=== PATIENT | male | born 1975 | race Hispanic/Latino ===

== ENCOUNTER 2018-12-04 11:58 | Inpatient (IN) | payer MEDICAID, MEDICARE, OTHER ==
--- NOTE | 2018-12-04 12:51 | Event Note ---
ED Screening Note Date of service: 12/04/18 Time: 12:23 ED Screening Note: 43 y o male presents with right shoulder pain s/p fall on groud level while picking up a ups package on his porch This initial assessment/diagnostic orders/clinical plan/treatment(s) is/are subject to change based on patients health status, clinical progression and re- assessment by fellow clinical providers in the ED. Further treatment and workup at subsequent clinical providers discretion. Patient/guardian urged not to elope from the ED as their condition may be serious if not clinically assessed and managed. Initial orders include: shoulder xr pain main side eval if dislocated
--- NOTE | 2018-12-04 13:09 | XRay Report ---
RIGHT SHOULDER 2 VIEWS INDICATION / CLINICAL INFORMATION: Fall with right shoulder/arm pain. COMPARISON: None available. FINDINGS: BONES / JOINT(S): There is an acute, comminuted fracture of the right humeral neck with medial displa cement of the distal fracture fragment. There is probable mild extension of the fracture into the bas e of the greater tuberosity of the humeral head. No dislocation is seen. SOFT TISSUES: No significant abnormality. ADDITIONAL FINDINGS: There are calcified right hilar lymph nodes. IMPRESSION: Acute, comminuted fracture of the right humeral neck with possible extension into the gre ater tuberosity. Signer Name: Ramírez Jules MD Signed: 12/04/2018 1:04 PM Workstation Name: [id number]
[2018-12-04] MEDS ORDERED: KETOROLAC 30 MG/1 ML INJ IV ONE (13:10)
[2018-12-04] MEDS ORDERED: MORPHINE 4 MG/1 ML INJ IV ONE ×2 (13:36→16:27)
--- NOTE | 2018-12-04 13:54 | XRay Report ---
RIGHT ELBOW 1 VIEW INDICATION / CLINICAL INFORMATION: Right elbow pain after fall COMPARISON: None available. FINDINGS: BONES / JOINT(S): Images are suboptimal due to the patient's inability to cooperate with positioning. I see no evidence of fracture or dislocation. SOFT TISSUES: No significant abnormality. ADDITIONAL FINDINGS: None. IMPRESSION: Negative limited exam. Signer Name: Ramírez Jules MD Signed: 12/04/2018 1:50 PM Workstation Name: [id number]
[2018-12-04] MEDS ORDERED: MORPHINE 4 MG/1 ML INJ ONE (16:26)
--- NOTE | 2018-12-04 16:34 | Emergency Department Report ---
ED Extremity Problem HPI - General Chief complaint: Shoulder Injury Stated complaint: FALL/SHOULDER PAIN Time Seen by Provider: 12/04/18 12:23 Source: patient Mode of arrival: Wheelchair Limitations: No Limitations - History of Present Illness Initial comments: Patient is a 43-year-old male withpast medical history who is complaining of right shoulder and elbow pain. Patient states he was getting up on his porch and a loss of balance and fell backwards onto his right side. Patient has an abrasion to the right elbow with some generalized pain. Patient also has a great deal of pain of the deltoid. Patient did not strike his head was no loss of consciousness. Patient states any movement of the right upper extremity causes intense 10 out of 10 pain. Severity scale (0 -10): 6 - Related Data Previous Rx's Medication Instructions Recorded Last Taken Type Multivitamin Tab [Multiple Vitamin 1 each PO QDAY #30 tablet 06/02/14 Unknown Rx TAB (Theragran)] buPROPion SR [Wellbutrin SR] 150 mg PO 1000,1600 #60 tablet 06/02/14 Unknown Rx traZODone [Desyrel] 50 mg PO QHS PRN #30 tablet 06/02/14 Unknown Rx Allergies Allergy/AdvReac Type Severity Reaction Status Date / Time No Known Allergies Allergy Verified 04/15/13 19:40 ED Review of Systems ROS: Stated complaint: FALL/SHOULDER PAIN Other details as noted in HPI Comment: All other systems reviewed and negative ED Past Medical Hx - Past Medical History Hx HIV: No Additional medical history: Friend with patient states no health history or allergies - Surgical History Past Surgical History?: No - Social History Smoking Status: Current Every Day Smoker Substance Use Type: None - Medications Home Medications: Home Medications Medication Instructions Recorded Confirmed Last Taken Type Multivitamin Tab [Multiple Vitamin 1 each PO QDAY #30 tablet 06/02/14 Unknown Rx TAB (Theragran)] buPROPion SR [Wellbutrin SR] 150 mg PO 1000,1600 #60 tablet 06/02/14 Unknown Rx traZODone [Desyrel] 50 mg PO QHS PRN #30 tablet 06/02/14 Unknown Rx ED Physical Exam - General Limitations: No Limitations General appearance: alert, in distress - Head Head exam: Present: atraumatic, normocephalic - Eye Eye exam: Present: normal appearance, PERRL, EOMI (secondary to pain) - ENT ENT exam: Present: mucous membranes moist - Neck Neck exam: Present: normal inspection - Respiratory Respiratory exam: Present: normal lung sounds bilaterally. Absent: respiratory distress, wheezes, rales, rhonchi - Cardiovascular Cardiovascular Exam: Present: regular rate, normal rhythm. Absent: systolic murmur, diastolic murmur, rubs, gallop - GI/Abdominal GI/Abdominal exam: Present: soft, normal bowel sounds - Rectal Rectal exam: Present: deferred - Extremities Exam Extremities exam: Present: normal inspection - Expanded Upper Extremity Exam Right Shoulder Exam: Present: tenderness, swelling, tenderness over AC joint. Absent: abrasion, laceration Upper Arm exam: Present: swelling Elbow exam: Present: tenderness, swelling, abrasion Forearm Wrist exam: Present: normal inspection, full ROM. Absent: tenderness Hand Wrist exam: Present: normal inspection, full ROM Vascular: Absent: vascular compromise - Back Exam Back exam: Present: normal inspection - Neurological Exam Neurological exam: Present: alert, oriented X3 - Psychiatric Psychiatric exam: Present: normal affect, normal mood - Skin Skin exam: Present: warm, dry, intact, normal color. Absent: rash ED Course Vital Signs 12/04/18 12/04/18 12:24 12:25 Temperature 97.3 F L Pulse Rate 97 H Respiratory 16 Rate Blood Pressure 142/63 [Left] O2 Sat by Pulse 96 Oximetry ED Medical Decision Making - Radiology Data [facility] [address] [place] [address] XRay Report Signed Patient: ROBERT AGUIAR JR MR#: [id number] : 1975 Acct:[id number] Age/Sex: 43 / M ADM Date: 12/04/18 Loc: ED Attending Dr: Ordering Physician: LEMUEL BRYSON Date of Service: 12/04/18 Procedure(s): XR shoulder 2+V RT Accession Number(s): [id number] cc: LEMUEL BRYSON Fluoro Time In Minutes: RIGHT SHOULDER 2 VIEWS INDICATION / CLINICAL INFORMATION: Fall with right shoulder/arm pain. COMPARISON: None available. FINDINGS: BONES / JOINT(S): There is an acute, comminuted fracture of the right humeral neck with medial displacement of the distal fracture fragment. There is probable mild extension of the fracture into the base of the greater tuberosity of the humeral head. No dislocation is seen. SOFT TISSUES: No significant abnormality. ADDITIONAL FINDINGS: There are calcified right hilar lymph nodes. IMPRESSION: Acute, comminuted fracture of the right humeral neck with possible extension into the greater tuberosity. Signer Name: Ramírez Jules MD Signed: 12/04/2018 1:04 PM Workstation Name: [id number] Transcribed By: RT Dictated By: Ramírez Jules MD Electronically Authenticated By: Ramírez Jules MD Signed Date/Time: 12/04/[address] [facility] [address] [place] [address] XRay Report Signed Patient: ROBERT AGUIAR JR MR#: [id number] : 1975 Acct:[id number] Age/Sex: 43 / M ADM Date: 12/04/18 Loc: ED Attending Dr: Ordering Physician: LEDY CARRASCO MD Date of Service: 12/04/18 Procedure(s): XR elbow 1V RT Accession Number(s): [id number] cc: LEDY CARRASCO MD Fluoro Time In Minutes: RIGHT ELBOW 1 VIEW INDICATION / CLINICAL INFORMATION: Right elbow pain after fall COMPARISON: None available. FINDINGS: BONES / JOINT(S): Images are suboptimal due to the patient's inability to cooperate with positioning. I see no evidence of fracture or dislocation. SOFT TISSUES: No significant abnormality. ADDITIONAL FINDINGS: None. IMPRESSION: Negative limited exam. Signer Name: Ramírez Jules MD Signed: 12/04/2018 1:50 PM Workstation Name: [id number] Transcribed By: RT Dictated By: Ramírez Jules MD Electronically Authenticated By: Ramírez Jules MD Signed Date/Time: 12/04/18 2500 - Medical Decision Making Discussed the case with Dr. Bryan with orthopedic surgery and he looked at the films and stated that this was something that would be more urgent surgical repair. He suggested patient be admitted to the hospital for pain control and surgical clearance and he likely will do surgery in the morning. Dr. Mitchell with the hospitalist service has agreed to accept the patient for admission. Critical care attestation.: If time is entered above; I have spent that time in minutes in the direct care of this critically ill patient, excluding procedure time. ED Disposition Clinical Impression: Humeral surgical neck fracture Qualifiers: Encounter type: initial encounter Fracture type: closed Fracture morphology: 2- part Fracture alignment: displaced Laterality: right Qualified Code(s): S42.221A - 2-part displaced fracture of surgical neck of right humerus, initial encounter for closed fracture Elbow contusion Qualifiers: Encounter type: initial encounter Laterality: right Qualified Code(s): S50.01XA - Contusion of right elbow, initial encounter Disposition: DC09 OP ADMIT IP TO THIS HOSP Is pt being admited?: Yes Does the pt Need Aspirin: No Condition: Stable Referrals: PRIMARY CARE, [Primary Care Provider] - 3-5 Days Time of Disposition: 16:36
[2018-12-04 16:56] LABS: Basophils # (Auto) 0.1 K/mm3 (0.0-0.1); Basophils % (Auto) 0.7 % (0.0-1.8); Eosinophils % (Auto) 0.1 % (0.0-4.3); Hematocrit 45.5 % (35.5-45.6); Hemoglobin 15.2 gm/dl (11.8-15.2); Lymphocytes # (Auto) 1.2 K/mm3 (1.2-5.4); Lymphocytes % (Auto) 8.9 % (13.4-35.0); Mean Corpuscular HGB Conc 33 % (32-34); Mean Corpuscular Volume 91 fl (84-94); Monocytes # (Auto) 0.7 K/mm3 (0.0-0.8); Monocytes % (Auto) 5.1 % (0.0-7.3); Platelet Count 259 K/mm3 (140-440); Red Blood Count 5.01 M/mm3 (3.65-5.03); Red Cell Distribution Width 13.3 % (13.2-15.2)
[2018-12-04 17:16] LABS: Calcium 9.4 mg/dL (8.4-10.2)
[2018-12-04 17:17] LABS: Partial Thromboplastin Time 26.8 Sec. (24.2-36.6)
--- NOTE | 2018-12-04 18:02 | Cat Scan Report ---
CT upper extremity left without contrast INDICATION / CLINICAL INFORMATION: right proximal humerus fracture, pre op detail. TECHNIQUE: Noncontrast CT of the right humerus with multiplanar reformats. All CT scans at this location are per formed using CT dose reduction for ALARA by means of automated exposure control. COMPARISON: Right shoulder radiographs from 12/04/2018 FINDINGS: Acute, mildly comminuted proximal humerus fracture involving the surgical neck and greater tuberosity . The greater tuberosity fragment is nondisplaced. Normal glenohumeral articulation is maintained, al though the humeral head fragment is internally rotated. There is apex anterior and medial angulation of the fracture. The largest posterior butterfly fragment is 4.5 cm in length. The clavicle, scapula and visualized ribs are intact. Visualized portion of the right lung is clear. IMPRESSION: 1. Comminuted and angulated proximal humerus fracture with largest butterfly fragment 4.5 cm in lengt h. Signer Name: Shalom Yeung MD Signed: 12/04/2018 5:57 PM Workstation Name: [id number]
--- NOTE | 2018-12-04 21:34 | History and Physical Report ---
History of Present Illness Date of examination: 12/04/18 Date of admission: 12/04/18 16:37 Chief complaint: Right shoulder pain for the last few hours History of present illness: 43-year-old male with no significant past medical history except for depression was trying to pick a package. Stumbled and fell down on the right upper extremity and sustained severe pain in right upper arm. Pain is 10 on a scale of 1-10 no loss of consciousness. Patient also has pain in the right elbow which is about 6 on a scale of 1-10 associated with an abrasion Past Medical History depression Surgical History Past Surgical History?: No Social History Smoking Status: Current Every Day Smoker Substance Use Type: Noneb Family history Htn - Medications Home Medications: Home Medications Medication Instructions Recorded Confirmed Last Taken Type Multivitamin Tab [Multiple Vitamin 1 each PO QDAY #30 tablet 06/02/14 Unknown Rx TAB (Theragran)] buPROPion SR [Wellbutrin SR] 150 mg PO 1000,1600 #60 tablet 06/02/14 Unknown Rx traZODone [Desyrel] 50 mg PO QHS PRN #30 tablet 06/02/14 Unknown Rx Review of Systems ROS: Stated complaint: FALL/SHOULDER PAIN Other details as noted in HPI Comment: All other systems reviewed and negative Medications and Allergies Allergies Allergy/AdvReac Type Severity Reaction Status Date / Time No Known Allergies Allergy Verified 04/15/13 19:40 Home Medications Medication Instructions Recorded Confirmed Last Taken Type Multivitamin Tab [Multiple Vitamin 1 each PO QDAY #30 tablet 06/02/14 12/04/18 11/12/18 Rx TAB (Theragran)] buPROPion SR [Wellbutrin SR] 150 mg PO 1000,1600 #60 tablet 06/02/14 12/04/18 12/03/18 Rx traZODone [Desyrel] 50 mg PO QHS PRN #30 tablet 06/02/14 12/04/18 12/03/18 Rx Exam - Constitutional Vitals: Temp Pulse Resp BP Pulse Ox 97.5 F L 81 20 127/90 96 12/04/18 20:23 12/04/18 20:23 12/04/18 20:23 12/04/18 20:23 12/04/18 20:23 General appearance: Present: no acute distress, well-nourished - EENT Eyes: Present: PERRL ENT: hearing intact, clear oral mucosa - Neck Neck: Present: supple, normal ROM - Respiratory Respiratory effort: normal Respiratory: bilateral: CTA - Cardiovascular Heart rate: 78 Rhythm: regular Heart Sounds: Present: S1 & S2. Absent: rub, click - Extremities Extremities: pulses symmetrical, No edema, abnormal (swelling of the right shoulder and proximal upper extremity, decreased range of motion) Peripheral Pulses: within normal limits - Abdominal General gastrointestinal: Present: soft, non-tender, non-distended, normal bowel sounds Male genitourinary: Present: normal - Integumentary Integumentary: Present: clear, warm, dry - Musculoskeletal Musculoskeletal: gait normal, strength equal bilaterally - Psychiatric Psychiatric: appropriate mood/affect, intact judgment & insight - Neurologic Neurologic: CNII-XII intact, moves all extremities - Allied Health Allied health notes reviewed: nursing, case management Results - Labs CBC & Chem 7: 12/04/18 16:39 12/04/18 16:39 Labs: Laboratory Last Values WBC 13.0 K/mm3 (4.5-11.0) H 12/04/18 16:39 RBC 5.01 M/mm3 (3.65-5.03) 12/04/18 16:39 Hgb 15.2 gm/dl (11.8-15.2) 12/04/18 16:39 Hct 45.5 % (35.5-45.6) 12/04/18 16:39 MCV 91 fl (84-94) 12/04/18 16:39 MCH 30 pg (28-32) 12/04/18 16:39 MCHC 33 % (32-34) 12/04/18 16:39 RDW 13.3 % (13.2-15.2) 12/04/18 16:39 Plt Count 259 K/mm3 (140-440) 12/04/18 16:39 Lymph % (Auto) 8.9 % (13.4-35.0) L 12/04/18 16:39 Branch % (Auto) 5.1 % (0.0-7.3) 12/04/18 16:39 Eos % (Auto) 0.1 % (0.0-4.3) 12/04/18 16:39 Baso % (Auto) 0.7 % (0.0-1.8) 12/04/18 16:39 Lymph # 1.2 K/mm3 (1.2-5.4) 12/04/18 16:39 Branch # 0.7 K/mm3 (0.0-0.8) 12/04/18 16:39 Eos # 0.0 K/mm3 (0.0-0.4) 12/04/18 16:39 Baso # 0.1 K/mm3 (0.0-0.1) 12/04/18 16:39 Seg Neutrophils % 85.2 % (40.0-70.0) H 12/04/18 16:39 Seg Neutrophils # 11.1 K/mm3 (1.8-7.7) H 12/04/18 16:39 PT 12.9 Sec. (12.2-14.9) 12/04/18 16:39 INR 1.00 (0.87-1.13) 12/04/18 16:39 APTT 26.8 Sec. (24.2-36.6) 12/04/18 16:39 Sodium 137 mmol/L (137-145) 12/04/18 16:39 Potassium 4.7 mmol/L (3.6-5.0) 12/04/18 16:39 Chloride 99.1 mmol/L (98-107) 12/04/18 16:39 Carbon Dioxide 25 mmol/L (22-30) 12/04/18 16:39 18 mmol/L 12/04/18 16:39 BUN 20 mg/dL (9-20) 12/04/18 16:39 1.5 mg/dL (0.8-1.5) 12/04/18 16:39 Estimated GFR 51 ml/min 12/04/18 16:39 13 % 12/04/18 16:39 Glucose 116 mg/dL (75-100) H 12/04/18 16:39 Calcium 9.4 mg/dL (8.4-10.2) 12/04/18 16:39 Short CBC 12/04/18 Range/Units 16:39 WBC 13.0 H (4.5-11.0) K/mm3 Hgb 15.2 (11.8-15.2) gm/dl Hct 45.5 (35.5-45.6) % Plt Count 259 (140-440) K/mm3 BMP 12/04/18 16:39 Sodium 137 Potassium 4.7 Chloride 99.1 Carbon Dioxide 25 BUN 20 Creatinine 1.5 Glucose 116 H Calcium 9.4 - Imaging and Cardiology Imaging and Cardiology: Right shoulder x-ray IMPRESSION: Acute, comminuted fracture of the right humeral neck with possible extension into the greater tuberosity. Right shoulder CT IMPRESSION: 1. Comminuted and angulated proximal humerus fracture with largest butterfly fragment 4.5 cm in length. Right elbow x-ray No fracture Assessment and Plan Advance Directives: Yes (full code) VTE prophylaxis?: Mechanical Plan of care discussed with patient/family: Yes - Patient Problems (1) Humeral surgical neck fracture Current Visit: Yes Status: Acute Qualifiers: Encounter type: initial encounter Fracture type: closed Fracture morphology: 2-part Fracture alignment: displaced Laterality: right Qualified Code(s): S42.221A - 2-part displaced fracture of surgical neck of right humerus, initial encounter for closed fracture Plan to address problem: Needs open reduction internal fixation Dr. Bryan consulted (2) Elbow contusion Current Visit: Yes Status: Acute Qualifiers: Encounter type: initial encounter Laterality: right Qualified Code(s): S50.01XA - Contusion of right elbow, initial encounter Plan to address problem: Symptomatic treatment (3) Depression Current Visit: No Status: Chronic Qualifiers: Depression Type: unspecified Qualified Code(s): F32.9 - Major depressive disorder, single episode, unspecified Plan to address problem: continue trazodone (4) DVT prophylaxis Current Visit: No Status: Acute Plan to address problem: SCDs for now and GI prophylaxis
[2018-12-04] MEDS ORDERED: METOCLOPRAMIDE 10 MG/2 ML INJ IV PRN (21:35)
[2018-12-04] MEDS ORDERED: ONDANSETRON 4 MG/2 ML INJ IV PRN (21:35)
[2018-12-04] MEDS ORDERED: oxyCODONE /ACETAMINOPHEN 5-325MG TAB PO PRN (21:35)
[2018-12-04] MEDS ORDERED: ACETAMINOPHEN 325 MG TAB PO PRN (21:35)
[2018-12-04] MEDS: HYDROmorphone 1 MG/1 ML INJ IV PRN (21:58)
[2018-12-04] MEDS: SODIUM CHLORIDE 0.9% 1000 ML 1,000 ML IV SCH (21:59)
[2018-12-04] MEDS: FAMOTIDINE 20 MG/2 ML INJ IV SCH (21:59)
[2018-12-05] MEDS: HYDROmorphone 1 MG/1 ML INJ IV PRN ×3 (05:45→21:37)
[2018-12-05 06:27] LABS: Basophils % (Auto) 0.6 % (0.0-1.8); Eosinophils # (Auto) 0.1 K/mm3 (0.0-0.4); Eosinophils % (Auto) 1.7 % (0.0-4.3); Hematocrit 42.3 % (35.5-45.6); Mean Corpuscular HGB Conc 33 % (32-34); Mean Corpuscular Volume 91 fl (84-94); Monocytes # (Auto) 0.6 K/mm3 (0.0-0.8); Monocytes % (Auto) 7.2 % (0.0-7.3); Platelet Count 247 K/mm3 (140-440); Red Blood Count 4.67 M/mm3 (3.65-5.03); Red Cell Distribution Width 13.4 % (13.2-15.2)
[2018-12-05 06:50] LABS: Albumin 4.4 g/dL (3.9-5); Calcium 8.8 mg/dL (8.4-10.2)
--- NOTE | 2018-12-05 09:26 | Anesthesia Day of Surgery ---
Anesthesia Day of Surgery - Day of Surgery Patient Examined: Yes Patient H&P Reviewed: Yes Patient is NPO: Yes
--- NOTE | 2018-12-05 09:26 | Anesthesia Consultation ---
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
[2018-12-05] MEDS ORDERED: ceFAZolin/STERILE WATER 2 GM/20 ML SYRINGE IV NR (09:30)
[2018-12-05] MEDS ORDERED: LACTATED RINGERS 1,000 ML IV SCH (09:30)
[2018-12-05] MEDS: FAMOTIDINE 20 MG/2 ML INJ IV SCH ×2 (10:00→21:39)
[2018-12-05] MEDS ORDERED: HYDROmorphone 1 MG/1 ML INJ ONE (10:17)
[2018-12-05] MEDS ORDERED: PROPOFOL 200 MG/20 ML VIAL IV ONE (10:18)
[2018-12-05] MEDS ORDERED: ROCURONIUM 50 MG/5 ML INJ IV ONE (10:48)
[2018-12-05] MEDS ORDERED: LIDOCAINE MPF (2%) 20 MG/1 ML VIAL 5 ML ONE (10:48)
[2018-12-05] MEDS ORDERED: dexAMETHasone 20 MG/5 ML VIAL ONE (10:49)
[2018-12-05] MEDS: oxyCODONE /ACETAMINOPHEN 5-325MG TAB PO PRN (13:11)
--- NOTE | 2018-12-05 14:00 | Progress Note ---
Assessment and Plan Assessment and plan: (1) Humeral surgical neck fracture Current Visit: Yes Status: Acute Qualifiers: Encounter type: initial encounter Fracture type: closed Fracture morphology: 2-part Fracture alignment: displaced Laterality: right Qualified Code(s): S42.221A - 2-part displaced fracture of surgical neck of right humerus, initial encounter for closed fracture Plan to address problem: Needs open reduction internal fixation Dr. Bryan consulted and will do it tomorrow (2) Elbow contusion Current Visit: Yes Status: Acute Qualifiers: Encounter type: initial encounter Laterality: right Qualified Code(s): S50.01XA - Contusion of right elbow, initial encounter Plan to address problem: Symptomatic treatment (3) Depression Current Visit: No Status: Chronic Qualifiers: Depression Type: unspecified Qualified Code(s): F32.9 - Major depressive disorder, single episode, unspecified Plan to address problem: continue trazodone (4) DVT prophylaxis Current Visit: No Status: Acute Plan to address problem: SCDs for now and GI prophylaxis History Interval history: Patient was seen and evaluated this morning, patient is complaining of severe right arm pain. Hospitalist Physical - Physical exam Narrative exam: Not in cardiopulmonary distress. The patient appeared well nourished and normally developed. Vital signs as documented. Head exam is unremarkable. No scleral icterus . Neck is without jugular venous distension, thyromegaly, or carotid bruits. Lungs are clear to auscultation. Cardiac exam reveals regular rate and Rhythm. First and second heart sounds normal. No murmurs, rubs or gallops. Abdominal exam reveals normal bowel sounds, no masses, no organomegaly and no aortic enlargement. Extremities Limited range of motion of the right upper extremity. C[employer]ED [employer]: Alert and oriented 3. No focal weakness. - Constitutional Vitals: Temp Pulse Resp BP Pulse Ox 97.3 F L 87 20 120/91 95 12/05/18 09:42 12/05/18 09:42 12/05/18 09:42 12/05/18 09:42 12/05/18 09:42 General appearance: Present: no acute distress, well-nourished Results - Labs CBC & Chem 7: 12/05/18 05:54 12/05/18 05:54 Labs: Laboratory Last Values WBC 7.8 K/mm3 (4.5-11.0) 12/05/18 05:54 RBC 4.67 M/mm3 (3.65-5.03) 12/05/18 05:54 Hgb 14.0 gm/dl (11.8-15.2) 12/05/18 05:54 Hct 42.3 % (35.5-45.6) 12/05/18 05:54 MCV 91 fl (84-94) 12/05/18 05:54 MCH 30 pg (28-32) 12/05/18 05:54 MCHC 33 % (32-34) 12/05/18 05:54 RDW 13.4 % (13.2-15.2) 12/05/18 05:54 Plt Count 247 K/mm3 (140-440) 12/05/18 05:54 Lymph % (Auto) 26.0 % (13.4-35.0) 12/05/18 05:54 [place] % (Auto) 7.2 % (0.0-7.3) 12/05/18 05:54 Eos % (Auto) 1.7 % (0.0-4.3) 12/05/18 05:54 Baso % (Auto) 0.6 % (0.0-1.8) 12/05/18 05:54 Lymph # 2.0 K/mm3 (1.2-5.4) 12/05/18 05:54 [place] # 0.6 K/mm3 (0.0-0.8) 12/05/18 05:54 Eos # 0.1 K/mm3 (0.0-0.4) 12/05/18 05:54 Baso # 0.0 K/mm3 (0.0-0.1) 12/05/18 05:54 Seg Neutrophils % 64.5 % (40.0-70.0) 12/05/18 05:54 Seg Neutrophils # 5.1 K/mm3 (1.8-7.7) 12/05/18 05:54 PT 12.9 Sec. (12.2-14.9) 12/04/18 16:39 INR 1.00 (0.87-1.13) 12/04/18 16:39 APTT 26.8 Sec. (24.2-36.6) 12/04/18 16:39 Sodium 140 mmol/L (137-145) 12/05/18 05:54 Potassium 3.8 mmol/L (3.6-5.0) 12/05/18 05:54 Chloride 102.7 mmol/L (98-107) 12/05/18 05:54 Carbon Dioxide 27 mmol/L (22-30) 12/05/18 05:54 14 mmol/L 12/05/18 05:54 BUN 25 mg/dL (9-20) H 12/05/18 05:54 1.5 mg/dL (0.8-1.5) 12/05/18 05:54 Estimated GFR 51 ml/min 12/05/18 05:54 17 % 12/05/18 05:54 Glucose 113 mg/dL (75-100) H 12/05/18 05:54 5.5 % (4-6) 12/04/18 21:49 Calcium 8.8 mg/dL (8.4-10.2) 12/05/18 05:54 0.50 mg/dL (0.1-1.2) 12/05/18 05:54 AST 18 units/L (5-40) 12/05/18 05:54 ALT 20 units/L (7-56) 12/05/18 05:54 76 units/L (35-129) 12/05/18 05:54 7.1 g/dL (6.3-8.2) 12/05/18 05:54 4.4 g/dL (3.9-5) 12/05/18 05:54 1.6 % 12/05/18 05:54 Active Medications - Current Medications Current Medications: Generic Name Dose Route Start Last Admin Trade Name Freq PRN Reason Stop Dose Admin Acetaminophen 650 mg 12/04/18 21:35 Tylenol PO Q4H PRN Pain MILD(1-3)/Fever >100.5/ELAM Cefazolin Sodium 2 gm 12/05/18 09:30 Ancef/Sterile Water 2 Gm/20 Ml IV 12/05/18 15:00 PREOP NR Famotidine 20 mg 12/04/18 22:00 12/04/18 21:59 Pepcid IV 20 mg BID TK Administration Hydromorphone HCl 1 mg 12/04/18 21:35 12/05/18 05:45 Dilaudid IV 1 mg Q3H PRN Administration Pain , Severe (7-10) Sodium Chloride 1,000 mls @ 75 mls/hr 12/04/18 22:00 12/04/18 21:59 Nacl 0.9% 1000 Ml IV 12/05/18 16:00 75 mls/hr DIRECT TK Administration Lactated Ringer's 1,000 mls @ 100 mls/hr 12/05/18 09:30 12/05/18 09:10 Lactated Ringers IV 12/05/18 18:00 100 mls/hr DIRECT TK Administration Metoclopramide HCl 10 mg 12/04/18 21:35 Reglan IV Q6H PRN Nausea And Vomiting Ondansetron HCl 4 mg 12/04/18 21:35 12/04/18 21:59 Zofran IV 4 mg Q8H PRN Administration Nausea And Vomiting Oxycodone/Acetaminophen 2 tab 12/05/18 13:00 12/05/18 13:11 Percocet 5/325 PO 2 tab Q6H PRN Administration Pain, Moderate (4-6) Sodium Chloride 10 ml 12/04/18 22:00 12/04/18 22:00 Sodium Chloride Flush Syringe 10 Ml IV 10 ml BID TK Administration Sodium Chloride 10 ml 12/04/18 21:35 Sodium Chloride Flush Syringe 10 Ml IV PRN PRN LINE FLUSH
[2018-12-05] MEDS: SODIUM CHLORIDE 0.9% 1000 ML 1,000 ML IV SCH (15:45)
[2018-12-06] MEDS: HYDROmorphone 1 MG/1 ML INJ IV PRN ×2 (05:58→19:45)
[2018-12-06] MEDS ORDERED: LACTATED RINGERS 1,000 ML IV SCH (07:20)
[2018-12-06] MEDS ORDERED: LIDOCAINE MPF (2%) 20 MG/1 ML VIAL 5 ML ONE (07:48)
[2018-12-06] MEDS ORDERED: ROCURONIUM 50 MG/5 ML INJ IV ONE (07:48)
[2018-12-06] MEDS ORDERED: fentaNYL 100 MCG/2 ML INJ ONE ×2 (07:49)
[2018-12-06] MEDS ORDERED: LACTATED RINGERS 1,000 ML ONE (07:49)
[2018-12-06] MEDS ORDERED: MIDAZOLAM 2 MG/2 ML INJ ONE (07:49)
[2018-12-06] MEDS ORDERED: PROPOFOL 200 MG/20 ML VIAL IV ONE (07:49)
[2018-12-06] MEDS ORDERED: BUPIVACAINE-EPINEPHRINE/PF 0.5%-1:200,000 (30 ML) VIAL INFILTRATI ONE (07:51)
[2018-12-06] MEDS ORDERED: ceFAZolin/STERILE WATER 2 GM/20 ML SYRINGE IV NR (08:15)
[2018-12-06] MEDS ORDERED: SUCCINYLCHOLINE CHLORIDE 200 MG/10 ML INJ MDV ONE (08:22)
[2018-12-06] MEDS ORDERED: dexAMETHasone 20 MG/5 ML VIAL ONE (08:58)
[2018-12-06] MEDS ORDERED: ONDANSETRON 4 MG/2 ML INJ ONE (08:58)
[2018-12-06] MEDS ORDERED: METOCLOPRAMIDE 10 MG/2 ML INJ ONE (08:58)
[2018-12-06] MEDS ORDERED: SODIUM CHLORIDE 0.9% IRR 1,500 ML BOTTLE IR ONE (09:12)
[2018-12-06] MEDS ORDERED: KETOROLAC 30 MG/1 ML INJ ONE (09:52)
[2018-12-06] MEDS ORDERED: NEOSTIGMINE 10MG/10 ML INJ MDV ONE (09:56)
[2018-12-06] MEDS ORDERED: GLYCOPYRROLATE 0.4 MG/2 ML INJ ONE (09:56)
--- NOTE | 2018-12-06 10:10 | Procedure Note ---
Date of procedure: 12/06/18 Pre-op diagnosis: displaced two-part right proximal humerus fracture Post-op diagnosis: same Procedure: Closed reduction insertion of intramedullary nail right proximal humerus Procedure Patient was brought to the OR after being given a scalene nerve block in preoperative holding patient was then transferred onto the OR table next the following induction intubation by anesthesia the patient was placed in a beachchair position C-arm fluoroscopy was used to evaluate the fracture next following this C-arm the right shoulder and arm was prepped and draped in the usual sterile manner. A timeout procedure was done to identify the patient and the correct operative site. An incision was made over the lateral border of the acromion and down distally about 2 cm this was then taken deep to the skin subcutaneous the deltoid fascia and onto the greater tuberosity again under C- arm direction a all was used to enter the medullary canal this was followed by placement of a guidewire down across the fracture and into the distal portion of the humeral medullary canal following this a short proximal humeral nail was inserted and a antegrade fashion down across the fracture site using the targeting device and 3 screws were applied to the humeral head with the alignment jig in place the distal fragment was then locked with 2 screws again inserted inserted using the targeting device AP and lateral views were obtained showing good reduction of the fracture and placement of the hardware. Space following this the wounds were copiously irrigated and were repaired and a standard routine fashion the patient tolerated the procedure there were no complications he was then sent to postanesthesia recovery in a stable condition Anesthesia: JESSIE, [facility] Surgeon: TONG PARDO (Beatris Bishop, 1st dental assistant teacher) Estimated blood loss: 50-100ml Pathology: none Condition: stable Disposition: PACU
[2018-12-06] MEDS: FAMOTIDINE 20 MG/2 ML INJ IV SCH ×2 (10:52→22:20)
--- NOTE | 2018-12-06 11:47 | Post Anesthesia Evaluation ---
- Post Anesthesia Evaluation Patient Participated: Yes Airway Patent: Yes Stable Respiratory Function: Yes Nausea/Vomiting: No Temp > 96.8F: Yes Pain Manageable: Yes Adequeate Hydration: Yes Anesthesia Complications: No
--- NOTE | 2018-12-06 13:17 | XRay Report ---
XR shoulder 2+V RT INDICATION / CLINICAL INFORMATION: RT HUMERAL NECK FX. COMPARISON: 12/04/2018 FINDINGS: ORIF of proximal right humeral fracture Fluoroscopy time: 1 minute. Fluoroscopic images: 4. IMPRESSION: ORIF of proximal right humeral fracture Signer Name: Roby Mcgowan MD FACLali Signed: 12/06/2018 1:12 PM Workstation Name: [id number]
[2018-12-06] MEDS: oxyCODONE /ACETAMINOPHEN 5-325MG TAB PO PRN (14:14)
--- NOTE | 2018-12-06 14:46 | Progress Note ---
Assessment and Plan Assessment and plan: (1) Humeral surgical neck fracture Current Visit: Yes Status: Acute Qualifiers: Encounter type: initial encounter Fracture type: closed Fracture morphology: 2-part Fracture alignment: displaced Laterality: right Qualified Code(s): S42.221A - 2-part displaced fracture of surgical neck of right humerus, initial encounter for closed fracture Plan to address problem: Needs open reduction internal fixation Dr. Bryan consulted and did surgery this morning PT consulted and will see the recommendations (2) Elbow contusion Current Visit: Yes Status: Acute Qualifiers: Encounter type: initial encounter Laterality: right Qualified Code(s): S50.01XA - Contusion of right elbow, initial encounter Plan to address problem: Symptomatic treatment (3) Depression Current Visit: No Status: Chronic Qualifiers: Depression Type: unspecified Qualified Code(s): F32.9 - Major depressive disorder, single episode, unspecified Plan to address problem: continue trazodone (4) DVT prophylaxis Current Visit: No Status: Acute Plan to address problem: SCDs for now and GI prophylaxis Disposition; Possible DC tomorrow after PT evaluation. History Interval history: Patient was seen and evaluated this morning, patient is complaining of severe right arm pain. s/p surgery. Hospitalist Physical - Physical exam Narrative exam: Not in cardiopulmonary distress. The patient appeared well nourished and normally developed. Vital signs as documented. Head exam is unremarkable. No scleral icterus . Neck is without jugular venous distension, thyromegaly, or carotid bruits. Lungs are clear to auscultation. Cardiac exam reveals regular rate and Rhythm. First and second heart sounds normal. No murmurs, rubs or gallops. Abdominal exam reveals normal bowel sounds, no masses, no organomegaly and no aortic enlargement. Extremities Limited range of motion of the right upper extremity. BUSINESS DIRECTOR: Alert and oriented 3. No focal weakness. - Constitutional Vitals: Temp Pulse Resp BP Pulse Ox 97.6 F 76 18 133/87 95 12/06/18 11:10 12/06/18 11:10 12/06/18 11:10 12/06/18 11:10 12/06/18 11:10 General appearance: Present: no acute distress, well-nourished Results - Labs CBC & Chem 7: 12/05/18 05:54 12/05/18 05:54 Labs: Laboratory Last Values WBC 7.8 K/mm3 (4.5-11.0) 12/05/18 05:54 RBC 4.67 M/mm3 (3.65-5.03) 12/05/18 05:54 Hgb 14.0 gm/dl (11.8-15.2) 12/05/18 05:54 Hct 42.3 % (35.5-45.6) 12/05/18 05:54 MCV 91 fl (84-94) 12/05/18 05:54 MCH 30 pg (28-32) 12/05/18 05:54 MCHC 33 % (32-34) 12/05/18 05:54 RDW 13.4 % (13.2-15.2) 12/05/18 05:54 Plt Count 247 K/mm3 (140-440) 12/05/18 05:54 Lymph % (Auto) 26.0 % (13.4-35.0) 12/05/18 05:54 [place] % (Auto) 7.2 % (0.0-7.3) 12/05/18 05:54 Eos % (Auto) 1.7 % (0.0-4.3) 12/05/18 05:54 Baso % (Auto) 0.6 % (0.0-1.8) 12/05/18 05:54 Lymph # 2.0 K/mm3 (1.2-5.4) 12/05/18 05:54 [place] # 0.6 K/mm3 (0.0-0.8) 12/05/18 05:54 Eos # 0.1 K/mm3 (0.0-0.4) 12/05/18 05:54 Baso # 0.0 K/mm3 (0.0-0.1) 12/05/18 05:54 Seg Neutrophils % 64.5 % (40.0-70.0) 12/05/18 05:54 Seg Neutrophils # 5.1 K/mm3 (1.8-7.7) 12/05/18 05:54 PT 12.9 Sec. (12.2-14.9) 12/04/18 16:39 INR 1.00 (0.87-1.13) 12/04/18 16:39 APTT 26.8 Sec. (24.2-36.6) 12/04/18 16:39 Sodium 140 mmol/L (137-145) 12/05/18 05:54 Potassium 3.8 mmol/L (3.6-5.0) 12/05/18 05:54 Chloride 102.7 mmol/L (98-107) 12/05/18 05:54 Carbon Dioxide 27 mmol/L (22-30) 12/05/18 05:54 14 mmol/L 12/05/18 05:54 BUN 25 mg/dL (9-20) H 12/05/18 05:54 1.5 mg/dL (0.8-1.5) 12/05/18 05:54 Estimated GFR 51 ml/min 12/05/18 05:54 17 % 12/05/18 05:54 Glucose 113 mg/dL (75-100) H 12/05/18 05:54 5.5 % (4-6) 12/04/18 21:49 Calcium 8.8 mg/dL (8.4-10.2) 12/05/18 05:54 0.50 mg/dL (0.1-1.2) 12/05/18 05:54 AST 18 units/L (5-40) 12/05/18 05:54 ALT 20 units/L (7-56) 12/05/18 05:54 76 units/L (35-129) 12/05/18 05:54 7.1 g/dL (6.3-8.2) 12/05/18 05:54 4.4 g/dL (3.9-5) 12/05/18 05:54 1.6 % 12/05/18 05:54 Active Medications - Current Medications Current Medications: Generic Name Dose Route Start Last Admin Trade Name Freq PRN Reason Stop Dose Admin Acetaminophen 650 mg 12/04/18 21:35 Tylenol PO Q4H PRN Pain MILD(1-3)/Fever >100.5/ELAM Cefazolin Sodium 2 gm 12/06/18 08:15 Ancef/Sterile Water 2 Gm/20 Ml IV 12/06/18 23:59 PREOP NR Famotidine 20 mg 12/04/18 22:00 12/05/18 21:39 Pepcid IV 20 mg BID TK Administration Hydromorphone HCl 1 mg 12/04/18 21:35 12/06/18 05:58 Dilaudid IV 1 mg Q3H PRN Administration Pain , Severe (7-10) Lactated Ringer's 1,000 mls @ 75 mls/hr 12/06/18 07:20 12/06/18 07:50 Lactated Ringers IV 75 mls/hr DIRECT TK Administration Metoclopramide HCl 10 mg 12/04/18 21:35 Reglan IV Q6H PRN Nausea And Vomiting Ondansetron HCl 4 mg 12/04/18 21:35 12/04/18 21:59 Zofran IV 4 mg Q8H PRN Administration Nausea And Vomiting Oxycodone/Acetaminophen 2 tab 12/05/18 13:00 12/06/18 14:14 Percocet 5/325 PO 2 tab Q6H PRN Administration Pain, Moderate (4-6) Sodium Chloride 10 ml 12/04/18 22:00 12/05/18 22:30 Sodium Chloride Flush Syringe 10 Ml IV 10 ml BID TK Administration Sodium Chloride 10 ml 12/06/18 11:00 Sodium Chloride Flush Syringe 10 Ml IV PRN PRN flush
[2018-12-07] MEDS: HYDROmorphone 1 MG/1 ML INJ IV PRN (07:12)
[2018-12-07] MEDS: FAMOTIDINE 20 MG/2 ML INJ IV SCH (08:01)
[2018-12-07 08:08] VITALS: BP 128/85
--- NOTE | 2018-12-07 11:06 | Discharge Summary ---
Providers - Providers Date of Admission: 12/04/18 16:37 Date of discharge: 12/07/18 Attending physician: MACI ZAMORA MD 12/04/18 21:35 Consult to Physician [CONS] Routine Comment: Consulting Provider: TONG BRYAN Physician Instructions: Reason For Exam: right humerus fracture 12/06/18 10:07 Physical Therapy Evaluation and Treat [CONS] Routine Comment: instruct on pendulum exercises right arm Reason For Exam: post op evaluation Primary care physician: MARIA ANTONIA MULLEN MD Hospitalization Reason for admission: right proximal humerus fracture Condition: Stable Pertinent studies: X-ray and CT of right proximal humerus Procedures: ORIF Hospital course: 43-year-old to male with past medical history significant for depression presented to the emergency department for right arm pain secondary to fall. X-ray and CT showed comminuted fracture of the proximal humerus. Orthopedics was consulted and ORIF was done and discharged home. Patient was discharged with home health. Will follow with Dr. Bryan in 10 days. Disposition: [id number]/[place]-06 HOME UNDER HOME [facility] Time spent for discharge: 32 minutes - Discharge Diagnoses (1) Elbow contusion Status: Acute Qualifiers: Encounter type: initial encounter Laterality: right Qualified Code(s): S50.01XA - Contusion of right elbow, initial encounter (2) Humeral surgical neck fracture Status: Acute Qualifiers: Encounter type: initial encounter Fracture type: closed Fracture morphology: 2-part Fracture alignment: displaced Laterality: right Qualified Code(s): S42.221A - 2-part displaced fracture of surgical neck of right humerus, initial encounter for closed fracture Core Measure Documentation - Palliative Care Palliative Care/ Comfort Measures: Not Applicable - Core Measures Any of the following diagnoses?: none Exam - Physical Exam Narrative exam: Not in cardiopulmonary distress. The patient appeared well nourished and normally developed. Vital signs as documented. Head exam is unremarkable. No scleral icterus . Neck is without jugular venous distension, thyromegaly, or carotid bruits. Lungs are clear to auscultation. Cardiac exam reveals regular rate and Rhythm. First and second heart sounds normal. No murmurs, rubs or gallops. Abdominal exam reveals normal bowel sounds, no masses, no organomegaly and no aortic enlargement. Extremities Limited range of motion of the right upper extremity. VP HR DIVERSITY: Alert and oriented 3. No focal weakness. - Constitutional Vitals: Temp Pulse Resp BP Pulse Ox 98.0 F 95 H 20 128/85 97 12/07/18 07:04 12/07/18 07:04 12/07/18 07:04 12/07/18 07:04 12/07/18 07:04 Plan Activity: no restrictions Weight Bearing Status: Full Weight Bearing Diet: regular Follow up with: CORY BHATT MD [Staff Physician] - 14 Days PRIMARY CAREMD [Referring] - 3-5 Days TONG BRYAN MD [Staff Physician] - 10 Days Prescriptions: oxyCODONE /ACETAMINOPHEN [Percocet 5/325 mg] 2 tab PO Q6H PRN #20 tablet PRN Reason: Pain, Moderate (4-6) Other Discharge Orders: Home Health Care (Amb) Location: None Selected
[2018-12-07] MEDS: oxyCODONE /ACETAMINOPHEN 5-325MG TAB PO PRN (11:19)
== END 2018-12-07 12:30 | disposition home health service (06) | DRG 493 ==
LOC: ED 11:58 → 3A 16:37 → 3B-SURG 19:12
PROVIDERS: ADMIT Internal Medicine; ATTEND Internal Medicine
PROC: 0PSC36Z Reposition Right Humeral Head with Intramedullary Internal Fixation Device, Percutaneous Approach (ICD-10-PCS; principal; 2018-12-06)
DX: S42.221A 2-part displaced fracture of surgical neck of right humerus, initial encounter for closed fracture (principal); R65.10 Systemic inflammatory response syndrome (SIRS) of non-infectious origin without acute organ dysfunction; S50.01XA Contusion of right elbow, initial encounter; F32.9 Major depressive disorder, single episode, unspecified; W18.39XA Other fall on same level, initial encounter; F17.200 Nicotine dependence, unspecified, uncomplicated; Z82.49 Family history of ischemic heart disease and other diseases of the circulatory system; Z79.899 Other long term (current) drug therapy; Y93.89 Activity, other specified; Y92.098 Other place in other non-institutional residence as the place of occurrence of the external cause; Y99.8 Other external cause status
CPT/HCPCS: 36415; 80048; 80053; 83036; 85025; 85610; 85730; 96361; 96374; 96375; G0378; C1713; J0330; J1100; J1170; J1885; J2250; J2270; J2405; J2704; J2710; J2765; J3010; J7030; J7120

== ENCOUNTER 2019-09-23 07:51 | Day surgery (SDC) | payer MEDICARE ==
[~2019-09-23 07:51] MED LIST: CELECOXIB 200 MG CAP PO NR; GABAPENTIN 300 MG CAP PO NR; LACTATED RINGERS 1,000 ML IV SCH; MAGNESIUM OXIDE 400 MG TAB PO SCH; MIDAZOLAM 2 MG/2 ML INJ IV NR; ceFAZolin/Water 2 GM/20 ML 2 GM/20 ML SYRINGE IV NR
[2019-09-23] MEDS ORDERED: HYDROmorphone 1 MG/1 ML INJ IV PRN (09:11)
[2019-09-23] MEDS ORDERED: ONDANSETRON 4 MG/2 ML INJ IV PRN (09:11)
--- NOTE | 2019-09-23 09:14 | Anesthesia Day of Surgery ---
Anesthesia Day of Surgery - Day of Surgery Patient Examined: Yes Patient H&P Reviewed: Yes Patient is NPO: Yes
--- NOTE | 2019-09-23 09:14 | Anesthesia Consultation ---
Anesthesia Consult and Med Hx Date of service: 09/23/19 - Airway Anesthetic Teeth Evaluation: Poor (4 remaining lower teeth (incisors)), Edentulous (upper) ROM Head & Neck: Adequate Mental/Hyoid Distance: Adequate Mallampati Class: Class II Intubation Access Assessment: Probably Good - Pulmonary Exam CTA: Yes - Cardiac Exam Cardiac Exam: RRR - Pre-Operative Health Status ASA Pre-Surgery Classification: ASA3 Proposed Anesthetic Plan: General - Pulmonary Hx Smoking: Yes (<1/2 PPD) Hx Respiratory Symptoms: No Hx Sleep Apnea: No (MICHELLE PRE SCREEN LOW RISK.) - Cardiovascular System Hx Hypertension: No Hx Heart Attack/AMI: No Hx Percutaneous Transluminal Coronary Angioplasty (PTCA): No Hx Cardia Arrhythmia: No - Central Nervous System CVA: Yes (2013; 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 No hx anesthetic complications.
[2019-09-23] MEDS ORDERED: propofoL 200 MG/20 ML VIAL IV ONE (09:37)
[2019-09-23] MEDS ORDERED: PHENYLEPHRINE/NS 1,000 MCG/10 ML SYRINGE (OR USE) IV ONE (09:37)
[2019-09-23] MEDS ORDERED: HYDROmorphone 1 MG/1 ML INJ ONE ×2 (09:37→13:12)
[2019-09-23] MEDS ORDERED: dexAMETHasone 20 MG/5 ML VIAL ONE (09:37)
[2019-09-23] MEDS ORDERED: LIDOCAINE MPF (2%) 20 MG/1 ML VIAL 5 ML ONE (09:37)
[2019-09-23] MEDS ORDERED: GLYCOPYRROLATE 0.4 MG/2 ML INJ ONE ×2 (09:37→13:03)
[2019-09-23] MEDS ORDERED: ONDANSETRON 4 MG/2 ML INJ ONE (09:37)
[2019-09-23] MEDS ORDERED: fentaNYL 100 MCG/2 ML INJ ONE (11:05)
[2019-09-23] MEDS ORDERED: ROCURONIUM 50 MG/5 ML INJ IV ONE (11:34)
[2019-09-23] MEDS ORDERED: SODIUM CHLORIDE 0.9% IRR 1,500 ML BOTTLE IR ONE (12:16)
--- NOTE | 2019-09-23 13:02 | Procedure Note ---
Date of procedure: 09/23/19 Pre-op diagnosis: Hardware irritation right humerus Post-op diagnosis: same Procedure: Removal of hardware right humerus Procedure Patient was brought to the OR after being given a scalene nerve block in preop holding next he was placed on the OR table supine following induction with MAC anesthesia the patient's right upper extremity was prepped and draped in the usual sterile manner. A timeout procedure was done to identify the patient and the correct operative site. Using the previous incision this was then taken down sharply through skin and subcu as well as the deltoid fascia and rotator cuff tendon and under C-arm visualization the 3 proximal screws were located and removed without complications next attention was turned to the distal interlocking screw again using C-arm fluoroscopy the screw was found and removed next the intramedullary nail proximally was removed without difficulty there did not appear to be any outward signs of an ongoing infection at this point next the wound was irrigated the proximal humerus was debrided using curettes and rongeurs next the wound was closed in a standard routine fashion postop dressings were applied patient tolerated the procedure there were no complications Anesthesia: MAC, regional Surgeon: TONG PARDO Estimated blood loss: 50-100ml Pathology: none Condition: stable Disposition: PACU
[2019-09-23] MEDS ORDERED: NEOSTIGMINE 10MG/10 ML INJ MDV ONE (13:03)
[2019-09-23] MEDS ORDERED: oxyCODONE /ACETAMINOPHEN 5-325MG TAB PO PRN (13:14)
[2019-09-23 13:47] VITALS: BP 143/96
--- NOTE | 2019-09-23 14:22 | Post Anesthesia Evaluation ---
- Post Anesthesia Evaluation Patient Participated: Yes Airway Patent: Yes Stable Respiratory Function: Yes Nausea/Vomiting: No Temp > 96.8F: Yes Pain Manageable: Yes Adequeate Hydration: Yes Anesthesia Complications: No Block Receding Appropriately: Yes (block for post op pain)
--- NOTE | 2019-09-23 14:59 | XRay Report ---
INTRAOPERATIVE FLUOROSCOPY: ORIF REMOVAL INDICATION: PAINFUL HARDWARE. TECHNIQUE: Intraoperative spot images were obtained during the procedure. FINDINGS: These images show interval removal of right humerus internal fixation hardware. See procedure note fo r details. Fluoroscopy Time: 39 seconds. Fluoroscopy Images: 5. Signer Name: Guanaco Salinas MD Signed: 09/23/2019 2:55 PM Workstation Name: [id number]
== END 2019-09-23 14:10 | disposition home or self-care (01) ==
LOC: OR 07:51
PROVIDERS: ATTEND Orthopaedic Surgery
DX: T84.89XA Other specified complication of internal orthopedic prosthetic devices, implants and grafts, initial encounter (principal); K21.9 Gastro-esophageal reflux disease without esophagitis; E78.5 Hyperlipidemia, unspecified; F32.9 Major depressive disorder, single episode, unspecified; G93.1 Anoxic brain damage, not elsewhere classified; I10 Essential (primary) hypertension; E78.00 Pure hypercholesterolemia, unspecified; F41.9 Anxiety disorder, unspecified; F17.210 Nicotine dependence, cigarettes, uncomplicated; F11.10 Opioid abuse, uncomplicated; Z98.890 Other specified postprocedural states; Z79.899 Other long term (current) drug therapy; Z82.49 Family history of ischemic heart disease and other diseases of the circulatory system; Z86.73 Personal history of transient ischemic attack (TIA), and cerebral infarction without residual deficits; Y83.8 Other surgical procedures as the cause of abnormal reaction of the patient, or of later complication, without mention of misadventure at the time of the procedure; Y92.89 Other specified places as the place of occurrence of the external cause
CPT/HCPCS: 20680; 73060; J0690; J1100; J1170; J2250; J2370; J2405; J2704; J2710; J3010; J7120

== ENCOUNTER 2020-09-15 15:53 | Emergency (ER) | payer MEDICARE ==
[2020-09-15 16:06] VITALS: BP 162/107
[2020-09-15] MEDS ORDERED: TETANUS,DIPH,PERTUSS(ACELL) VACCINE 0.5 ML SYRINGE IM ONE ×2 (16:06→19:30)
--- NOTE | 2020-09-15 16:09 | Emergency Department Report ---
Blank Doc - Documentation Documentation: 45-year-old male that presents with a mechanical trip and fall to the left sided face and left knee. Denies any loss of consciousness. Left eyebrow laceration noted on exam. 1- This is a initial triage assessment/medical screening only. Full assessment and work-up will be completed once the patient is in proper hospital gown, ED bed and in a private room setting. This initial assessment/diagnostic orders/clinical plan/ treatment(s) is/are subject to change based on pt's health status, clinical progression and re-assessment by fellow clinical providers in the ED. Further treatment and workup at subsequent clinical providers discretion. Patient/guardians urged not to elope from ED as their condition may be serious if not clinically assessed and managed. 2-imaging studies 3-tetanus needed 4-lac to be repaired
--- NOTE | 2020-09-15 16:50 | XRay Report ---
XR knee 3V LT INDICATION / CLINICAL INFORMATION: Fall with left knee pain and abrasion. COMPARISON: None available. FINDINGS: BONES/JOINT(S): No acute fracture or subluxation. No significant degenerative changes. No joint effus ion. Benign area of serpentine sclerosis in the distal femoral shaft likely indicates a previous bone infarct. SOFT TISSUES: No acute findings. Calcification along the region of the MCL suggesting remote MCL spra in. ADDITIONAL FINDINGS: None. Signer Name: Villa Linda MD Signed: 09/15/2020 4:46 PM Workstation Name: [id number]
--- NOTE | 2020-09-15 17:24 | Cat Scan Report ---
CT head/brain wo con INDICATION / CLINICAL INFORMATION: 45 years Male; fall with left eyebrow laceration. TECHNIQUE: Routine CT head without contrast. All CT scans at this location are performed using CT dos e reduction for ALARA by means of automated exposure control. COMPARISON: None. FINDINGS: BRAIN / INTRACRANIAL CONTENTS: There is prominence of the lateral and third ventricles at. No previou s exams are available for comparison and correlation would be needed regarding developing hydrocephal us. There is decreased attenuation involving the periventricular white matter though the findings are most notable along the anterior regions and may reflect microvascular angiopathy. Additionally, ther e foci of decreased attenuation within the clivus palatine bilaterally which may also reflect chronic ischemic changes and correlation would be a needed at. There is edema involving the left frontal scalp. However, there is no clear CT evidence of acute intr acranial hemorrhage or significant mass effect. ORBITS: No significant abnormality of visualized orbits. SINUSES / MASTOIDS: No significant abnormality in the visualized paranasal sinuses or mastoid air tai ls. CRANIOCERVICAL JUNCTION: No significant abnormality. ADDITIONAL FINDINGS: None. IMPRESSION: 1. There is edema involving left frontal scalp without clear CT ends of acute intracranial hemorrhage . 2. There are periventricular white matter changes as well as decreased attenuation within the basal g anglia which may reflect chronic ischemic changes and correlation would be needed. 3. There is mild enlargement of the lateral and third ventricles and correlation would also be needed regarding developing hydrocephalus on this single exam. Signer Name: Marlon Barry MD Signed: 09/15/2020 5:20 PM Workstation Name: [id number]
--- NOTE | 2020-09-15 17:28 | Cat Scan Report ---
CT cervical spine wo con INDICATION / CLINICAL INFORMATION: 45 years Male; fall with left eyebrow laceration. TECHNIQUE: Axial CT images of the cervical spine were obtained. Sagittal and coronal reformatted images were pr oduced. All CT scans at this location are performed using CT dose reduction for ALARA by means of aut omated exposure control. COMPARISON: None available. FINDINGS: POST-SURGICAL CHANGES: None. ALIGNMENT: There is slight curvature the cervical spine, convex toward the left. There is no signific ant spondylolisthesis. VERTEBRAE: There is no CT evidence of acute fracture involving the cervical spine. There are multilev el mild degenerative the disc at changes including a mild anterior osteophytes from C4-5 to C6-7. INTRAVERTEBRAL DISCS: The central spondylosis at C3-4 effaces the ventral subarachnoid space. The nelly ral foramen are patent. The spondylosis at C4-5 is greater on the right with encroachment on the righ t ventral cord. There is no significant foraminal narrowing. The spondylosis at C5-6 also mildly encroaches on the ventral cord. There is no significant foraminal narrowing at. There is mild to moderate left foraminal narrowing at C6-7. PARASPINAL SOFT TISSUES: No prevertebral soft tissue fluid collections are identified. ADDITIONAL FINDINGS: None. IMPRESSION: 1. There is no CT evidence of acute fracture involving the cervical spine. 2. There are multilevel degenerative the changes as detailed above. Signer Name: Marlon Barry MD Signed: 09/15/2020 5:23 PM Workstation Name: [id number]
[2020-09-15] MEDS ORDERED: ACETAMINOPHEN 500 MG TAB PO ONE (18:19)
[2020-09-15] MEDS ORDERED: LIDOCAINE (2%) 20 MG/1 ML VIAL 20 ML MDV INFILTRATI ONE (21:16)
--- NOTE | 2020-09-16 00:09 | Emergency Department Report ---
ED Fall HPI - General Chief Complaint: Fall Stated Complaint: LEFT EYE BLEEDING, SLASH OVER EYE Time Seen by Provider: 09/15/20 16:06 Source: patient Mode of arrival: Ambulatory - History of Present Illness Initial Comments: 41-year-old male was emerge department after a mechanical trip and fall at the stool when he was about to walk in. Patient states he lost his his footing and tripped over an object and started the fall process for while he was trying to break his fall his knee left knee struck the ground causing him to have an abrasion contusion and swelling in the glasses on his face head broke in the process striking a object and lacerating his brow. He states also during the fall this something scraped his chin as well he reports no headache no blurred vision no nausea, no vomiting no hemoptysis no hematemesis no neck pain. MD Complaint: fall Fall From: standing Place Fall Occurred: home Loss of Consciousness: none Prolonged Down Time?: no Symptoms Prior to Fall: none Location: face Location - Extremities: Left: Knee Severity: mild, moderate Quality: dull Context: tripped/slipped Associated Symptoms: denies: headache, neck pain, numbness, weakness, shortness of breath, abdominal pain, unable to walk, lightheaded, vertigo - Related Data Home Medications Medication Instructions Recorded Confirmed Last Taken buPROPion SR [Wellbutrin SR] 150 mg PO DAILY 09/18/19 09/18/19 09/22/19 Previous Rx's Medication Instructions Recorded Last Taken Type AtorvaSTATin [Lipitor] 20 mg PO DAILY #30 01/10/19 09/22/19 Rx FLUoxetine [PROzac] 20 mg PO DAILY #30 cap 01/10/19 09/22/19 Rx Multivitamin Tab [Multiple Vitamin 1 each PO QDAY #30 tablet 01/10/19 09/22/19 Rx TAB (Theragran)] Omeprazole 20 mg PO DAILY #30 01/10/19 09/22/19 Rx amantadine [Symmetrel] 100 mg PO BID #60 cap 01/10/19 09/22/19 Rx oxyCODONE /ACETAMINOPHEN [Percocet 1 tab PO Q6HR PRN #20 tablet 09/23/19 Unknown Rx 5/325] Chlorhexidine Gluconate [Hibiclens] 10 ml TP BID #240 liquid 09/15/20 Unknown Rx Ketorolac [Toradol] 10 mg PO Q6H PRN #15 tablet 09/15/20 Unknown Rx cephALEXin [Keflex] 500 mg PO Q6HR #40 capsule 09/15/20 Unknown Rx Allergies Allergy/AdvReac Type Severity Reaction Status Date / Time No Known Allergies Allergy Verified 04/15/13 19:40 ED Review of Systems ROS: Stated complaint: LEFT EYE BLEEDING, SLASH OVER EYE Other details as noted in HPI Comment: All other systems reviewed and negative ED Past Medical Hx - Past Medical History Previous Medical History?: Yes Hx Hypertension: No Hx Heart Attack/AMI: No Hx GERD: Yes Hx Liver Disease: No Hx Renal Disease: No Hx HIV: No Additional medical history: Friend with patient states no health history or allergies - Surgical History Past Surgical History?: Yes Hx Appendectomy: Yes Additional Surgical History: right shoulder - Social History Smoking Status: Light Tobacco Smoker - Medications Home Medications: Home Medications Medication Instructions Recorded Confirmed Last Taken Type AtorvaSTATin [Lipitor] 20 mg PO DAILY #30 01/10/19 09/18/19 09/22/19 Rx FLUoxetine [PROzac] 20 mg PO DAILY #30 cap 01/10/19 09/18/19 09/22/19 Rx Multivitamin Tab [Multiple Vitamin 1 each PO QDAY #30 tablet 01/10/19 09/18/19 09/22/19 Rx TAB (Theragran)] Omeprazole 20 mg PO DAILY #30 01/10/19 09/18/19 09/22/19 Rx amantadine [Symmetrel] 100 mg PO BID #60 cap 01/10/19 09/18/19 09/22/19 Rx buPROPion SR [Wellbutrin SR] 150 mg PO DAILY 09/18/19 09/18/19 09/22/19 History oxyCODONE /ACETAMINOPHEN [Percocet 1 tab PO Q6HR PRN #20 tablet 09/23/19 Unknown Rx 5/325] Chlorhexidine Gluconate [Hibiclens] 10 ml TP BID #240 liquid 09/15/20 Unknown Rx Ketorolac [Toradol] 10 mg PO Q6H PRN #15 tablet 09/15/20 Unknown Rx cephALEXin [Keflex] 500 mg PO Q6HR #40 capsule 09/15/20 Unknown Rx ED Physical Exam - General Limitations: No Limitations General appearance: alert, in no apparent distress - Head Head exam: Present: normocephalic. Absent: atraumatic - Expanded Head Exam Expanded Head exam: Present: abrasion 1 - Abrasion to this region 2 - Laceration - Eye Eye exam: Present: normal appearance, PERRL, EOMI Pupils: Present: normal accommodation - ENT ENT exam: Present: normal exam, normal orophraynx, mucous membranes moist, TM's normal bilaterally - Neck Neck exam: Present: normal inspection, full ROM - Respiratory Respiratory exam: Present: normal lung sounds bilaterally. Absent: respiratory distress, wheezes, rales, chest wall tenderness, accessory muscle use, decreased breath sounds - Cardiovascular Cardiovascular Exam: Present: regular rate, normal rhythm. Absent: systolic murmur, diastolic murmur, rubs, gallop - GI/Abdominal GI/Abdominal exam: Present: soft, normal bowel sounds - Rectal Rectal exam: Present: deferred - Extremities Exam Extremities exam: Present: normal inspection - Back Exam Back exam: Present: normal inspection - Neurological Exam Neurological exam: Present: alert, oriented X3 - Psychiatric Psychiatric exam: Present: normal affect, normal mood - Skin Skin exam: Present: warm, dry, intact, normal color. Absent: rash ED Course Vital Signs 09/15/20 09/15/20 16:01 16:05 Temperature 99.5 F 99.5 F Pulse Rate 113 H Respiratory 18 Rate Blood Pressure 162/107 O2 Sat by Pulse 98 Oximetry - Laceration /Wound Repair Face Wound Location: face Wound Length (cm): 6 Wound's Depth, Shape: linear Wound Explored: no foreign body removed Betadine Prep?: Yes Anesthesia: 1% Lidocaine Volume Anesthetic (ccs): 5 Suture Size/Type: 4:0 Number of Sutures: 8 Critical care attestation.: If time is entered above; I have spent that time in minutes in the direct care of this critically ill patient, excluding procedure time. ED Disposition Clinical Impression: Facial laceration, Fall, Knee contusion, Multiple abrasions Disposition: TO HOME OR SELFCARE Is pt being admited?: No Does the pt Need Aspirin: No Condition: Stable Instructions: Abrasion, Contusion, Sutured Wound Care, Laceration Care, Adult, [id number] Prescriptions: Chlorhexidine Gluconate [Hibiclens] 10 ml TP BID #240 liquid cephALEXin [Keflex] 500 mg PO Q6HR #40 capsule Ketorolac [Toradol] 10 mg PO Q6H PRN #15 tablet PRN Reason: Pain Referrals: PRIMARY CARE, [Primary Care Provider] - 3-5 Days [facility] [Provider Group] - 3-5 Days
== END 2020-09-16 00:05 | disposition home or self-care (01) ==
LOC: ED 15:53
DX: S01.81XA Laceration without foreign body of other part of head, initial encounter (principal); S80.02XA Contusion of left knee, initial encounter; K21.9 Gastro-esophageal reflux disease without esophagitis; Z90.49 Acquired absence of other specified parts of digestive tract; Z98.890 Other specified postprocedural states; F17.200 Nicotine dependence, unspecified, uncomplicated; Z79.899 Other long term (current) drug therapy; W01.0XXA Fall on same level from slipping, tripping and stumbling without subsequent striking against object, initial encounter; Y93.89 Activity, other specified; Y92.89 Other specified places as the place of occurrence of the external cause; Y99.8 Other external cause status
CPT/HCPCS: 70450; 72125; 90471; 90715

== ENCOUNTER 2020-09-28 13:08 | Emergency (ER) | payer MEDICARE ==
--- NOTE | 2020-09-28 13:57 | Emergency Department Report ---
Suture/Staple Removal - HPI Chief Complaint: Laceration/Recheck/Suture Stated Complaint: SUTURE REMOVAL Time Seen by Provider: 09/28/20 13:48 When Sutures or Mi Placed: >14 Days Ago Wound Location: Left eyebrow ED Review of Systems ROS: Stated complaint: SUTURE REMOVAL Other details as noted in HPI Comment: All other systems reviewed and negative ED Past Medical Hx - Past Medical History Previous Medical History?: Yes Hx Hypertension: No Hx Heart Attack/AMI: No Hx GERD: Yes Hx Liver Disease: No Hx Renal Disease: No Hx HIV: No Additional medical history: Friend with patient states no health history or allergies - Surgical History Past Surgical History?: Yes Hx Appendectomy: Yes Additional Surgical History: right shoulder - Social History Smoking Status: Light Tobacco Smoker - Medications Home Medications: Home Medications Medication Instructions Recorded Confirmed Last Taken Type AtorvaSTATin [Lipitor] 20 mg PO DAILY #30 01/10/19 09/18/19 09/22/19 Rx FLUoxetine [PROzac] 20 mg PO DAILY #30 cap 01/10/19 09/18/19 09/22/19 Rx Multivitamin Tab [Multiple Vitamin 1 each PO QDAY #30 tablet 01/10/19 09/18/19 09/22/19 Rx TAB (Theragran)] Omeprazole 20 mg PO DAILY #30 01/10/19 09/18/19 09/22/19 Rx amantadine [Symmetrel] 100 mg PO BID #60 cap 01/10/19 09/18/19 09/22/19 Rx buPROPion SR [Wellbutrin SR] 150 mg PO DAILY 09/18/19 09/18/19 09/22/19 History oxyCODONE /ACETAMINOPHEN [Percocet 1 tab PO Q6HR PRN #20 tablet 09/23/19 Unknown Rx 5/325] Chlorhexidine Gluconate [Hibiclens] 10 ml TP BID #240 liquid 09/15/20 Unknown Rx Ketorolac [Toradol] 10 mg PO Q6H PRN #15 tablet 09/15/20 Unknown Rx cephALEXin [Keflex] 500 mg PO Q6HR #40 capsule 09/15/20 Unknown Rx Suture Removal Exam - Exam General: Vital signs noted. No distress. Alert and acting appropriately. Wound: No Pathologic Erythema, No Tenderness, No Drainage, No Pus, No Wound Dehiscence Other Systems: All other systems reviewed and are unremarkable. ED Course Vital Signs 09/28/20 09/28/20 13:26 13:29 Temperature 98 F Pulse Rate 94 H Respiratory 16 Rate Blood Pressure 165/111 [Left] O2 Sat by Pulse 98 Oximetry ED Recheck MDM - Differential Diagnosis Suture/Staple Removal Critical care attestation.: If time is entered above; I have spent that time in minutes in the direct care of this critically ill patient, excluding procedure time. ED Disposition Clinical Impression: Encounter for removal of sutures Disposition: DC-01 TO HOME OR SELFCARE Is pt being admited?: No Does the pt Need Aspirin: No Condition: Stable Instructions: Wound Closure Removal, Care After Time of Disposition: 13:59
== END 2020-09-28 14:08 | disposition home or self-care (01) ==
LOC: ED 13:08
CPT/HCPCS: 99282